=== PATIENT | male | born 1940 | race Caucasian/White ===

== ENCOUNTER 2020-02-05 10:08 | Emergency (ER) | payer MEDICARE, OTHER ==
[2020-02-05 10:14] VITALS: BP 158/70; PULSE 95
--- NOTE | 2020-02-05 10:24 | EDM.PDOC ---
ED HPI GENERAL MEDICAL PROBLEM - General Chief Complaint: Lower Extremity Injury/Pain Stated Complaint: LEFT LEG PAIN, NUMB Time Seen by Provider: 02/05/20 10:08 Source of Information: Reports: Patient, EMS, Old Records ([facility] chart/EMR). Denies: EMS Notes Reviewed (Not available at time of dictation) History Limitations: Reports: No Limitations - History of Present Illness INITIAL COMMENTS - FREE TEXT/NARRATIVE: The patient was brought to the emergency room via ambulance with research engineer accompaniment with no treatment in route. Patient apparently began having some nonspecific left foot and left leg numbness yesterday evening with progression this morning and patient waking up with moderate 8/10 left leg pain and paresthesias at about 5 AM this morning. He did take 500 mg of Tylenol at about 8:30 AM this morning with an additional OxyContin taken at about 9:30 AM with no improvement in his symptoms. He denies any recent fall, injury, etc., however note a recent CABG with venous bypass taken from the left leg. He denies any drainage, local signs of infection, etc. The patient denies any chest pain/pressure, heart flutter, dizziness, orthostasis, orthopnea, diaphoresis, recent decreased exercise tolerance, or any other anginal-type symptoms. No recent history of abdominal pain, heartburn, nausea, diarrhea, melena, gross hematochezia, or any food intolerance, including fatty foods, etc.. He denies any gross hematuria, colic, or other UTI symptoms. The patient also denies any recent fever, cough, wheezing, dyspnea, etc.. Onset: Gradual Onset Date: 02/04/20 Duration: Constant, Getting Worse Location: Reports: Lower Extremity, Left. Denies: Head, Face, Neck, Chest, Abdomen, Back, Pelvis, Upper Extremity, Left, Upper Extremity, Right, Lower Extremity, Right, Radiates to Quality: Reports: Stabbing, Throbbing Severity: Moderate Improves with: Reports: None Worsens with: Reports: None Context: Reports: Other (As above). Denies: Sick Contact, Trauma Associated Symptoms: Denies: Confusion, Chest Pain, Cough, Diaphoresis, Fever/Chills, Headaches, Loss of Appetite, Malaise, Nausea/Vomiting, Shortness of Breath, Weakness Treatments SHAKER REPAIRER: Reports: Acetaminophen, Other Medication(s) Left Leg Pain Score (Numeric/FACES): 8 - Related Data Allergies Allergy/AdvReac Type Severity Reaction Status Date / Time No Known Allergies Allergy Verified 01/31/17 16:01 Home Meds: Home Meds Cyanocobalamin (Vitamin B12) [Vitamin B12] 1,000 mcg PO DAILY 01/16/17 [History] Amiodarone [Cordarone] 200 mg PO DAILY 02/05/20 [History] Aspirin [Ecotrin EC] 81 mg PO DAILY@199902/05/20 [History] Clopidogrel [Plavix] 75 mg PO DAILY 02/05/20 [History] Furosemide 40 mg PO DAILY 02/05/20 [History] Metoprolol Succinate [Toprol XL 50mg] 50 mg PO DAILY 02/05/20 [History] Pantoprazole [ProTONIX] 40 mg PO DAILY@169902/05/20 [History] Potassium Chloride [Klor-Con M20] 40 meq PO DAILY 02/05/20 [History] atorvaSTATin [Lipitor] 80 mg PO DAILY@199902/05/20 [History] lisinopriL [Lisinopril] 10 mg PO DAILY 02/05/20 [History] metFORMIN [Glucophage XR] 500 mg PO BIDMEALS 02/05/20 [History] oxyCODONE 5 mg PO Q4H PRN 02/05/20 [History] Past Medical History HEENT History: Reports: Hard of Hearing, Other (See Below) Other HEENT History: Bilateral presbycusis with hearing aid therapy. Nasal polyposis. Cardiovascular History: Reports: Bypass, CAD, Heart Murmur, High Cholesterol, Hypertension, PA, PTCA, Stents, Other (See Below) Other Cardiovascular History: Cardiomegaly. History of PA in October 1997 just prior to initial PTCA/stent as above with no subsequent MIs. Respiratory History: Reports: COPD, Intubation, Previous, Other (See Below). Denies: Intubation, Difficult Other Respiratory History: COPD by chest x-ray with no current medical therapy. History of right rib fractures by x-ray. Gastrointestinal History: Reports: Colon Polyp, GERD, Other (See Below) Other Gastrointestinal History: History of benign hyperplastic colonic polyp of the transverse colon removed on 06/12/2007. Hyperbilirubinemia. Genitourinary History: Reports: BPH Musculoskeletal History: Reports: Arthritis, Back Pain, Chronic, Osteoarthritis, Other (See Below) Other Musculoskeletal History: Scoliosis. 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 Endocrine/Metabolic History: Reports: Diabetes, Type II. Denies: Diabetes, Type I, Hypothyroidism, IDDM Hematologic History: Reports: Anemia, B12 Deficiency - Past Surgical History HEENT Surgical History: Reports: Naso-Sinus Surgery, Other (See Below) Other HEENT Surgeries/Procedures: Septoplasty in 2010. Cardiovascular Surgical History: Reports: Coronary Artery Bypass, Coronary Artery Stent, Percutaneous Transluminal Angioplasty, Other (See Below) Other Cardiovascular Surgeries/Procedures: PTCA/stent in October 1997, December 2004, and 2009 with two-vessel CABG on 01/25/2020. GI Surgical History: Reports: Colonoscopy, Polypectomy, Other (See Below) Other GI Surgeries/Procedures: Initial colonoscopy on 06/12/2007 with polypectomy as above. Normal follow-up colonoscopy on 12/18/2012. Cholecystectomy in 2011. Treatment of abd abcess with strep. Neurological Surgical History: Reports: Discectomy, Lumbar Spine, Other (See Below) Other Neurological Surgeries/Procedures: Discectomy of the lumbar spine in 1983. Musculoskeletal Surgical History: Reports: Arthroscopic Knee, Shoulder Surgery Other Musculoskeletal Surgeries/Procedures:: Left rotator cuff repair. Bilateral knee arthroscopic evaluations. - Past Imaging History Past Imaging History: Reports: JOSÉ LUIS Screen (JOSÉ LUIS screening with exercise negative on 06/07/2009.), Angiography (Last in January 2020.), CAT Scan (CT of the head and maxillofacial region on 01/10/2017.), Stress Testing (Low level cardiac stress test on 06/28/2010 and 01/31/2005. Cardiolite stress test on 06/08/2010, 06/13/2007, and 08/05/2003), Ultrasound (Gallbladder ultrasound on 12/07/2011.) Social & Family History - Family History Oncologic: Reports: Prostate, Other (See Below) Other Oncologic Family History: Father with prostate cancer. Review of Systems - Review of Systems Review Of Systems: Comprehensive ROS is negative, except as noted in HPI. ED EXAM, GENERAL - Physical Exam Exam: See Below Exam Limited By: No Limitations General Appearance: Alert, WD/WN, No Apparent Distress Ears: Hearing Loss, Other (Moderate presbycusis with the patient not having his hearing aids today.) Head: Atraumatic, Normocephalic. No: Facial Swelling, Facial Tenderness, Sinus Tenderness Neck: Carotid Bruit (Mild bilateral carotid bruits). No: Supple, Non-Tender, Full Range of Motion, Lymphadenopathy (L), Lymphadenopathy (R), Thyromegaly Respiratory/Chest: No Respiratory Distress, Lungs Clear, Normal Breath Sounds, No Accessory Muscle Use, Chest Non-Tender, Other (Medial sternotomy is intact and healing well with no evidence of local signs of infection). No: Pleural Rub, Retractions Cardiovascular: Normal Peripheral Pulses, Regular Rate, Rhythm, No Edema, No Gallop, No JVD, No Murmur, No Rub. No: Gallop/S3, Gallop/S4, Friction Rub Peripheral Pulses: 2+: Radial (L), Radial (R), Dorsalis Pedis (L), Dorsalis Pedis (R) GI/Abdominal: Normal Bowel Sounds, Soft, Non-Tender, No Organomegaly, No Distention, No Abnormal Bruit, No Mass. No: Guarding (Male) Exam: Deferred Rectal (Males) Exam: Deferred Back Exam: Full Range of Motion, Other (Mild scoliosis). No: CVA Tenderness (L), CVA Tenderness (R), Muscle Spasm, Paraspinal Tenderness, Vertebral Tenderness Extremities: Normal Range of Motion, No Pedal Edema, Normal Capillary Refill, Leg Pain (Mild palpation pain over the venous graft site at the left medial knee region with minimal localized swelling not involving the knee joint with no wound dehiscence, local signs of infection, etc.). No: Betty's Sign, Increased Warmth, Redness Neurological: Alert, Oriented, CN II-XII Intact, Normal Cognition, Normal Gait, Normal Reflexes (Negative Babinski's), No Motor/Sensory Deficits Psychiatric: Normal Affect, Normal Mood Skin Exam: Wound/Incision (Venous graft site and medial sternotomy as above). No: Diaphoretic, Ecchymosis, Erythema, Increased Warmth, Lymphangitis Lymphatic: No Adenopathy Course - Vital Signs Last Recorded V/S: Last Vital Signs Temp 35.8 C L 02/05/20 10:09 Pulse 95 02/05/20 10:09 Resp 20 02/05/20 10:09 BP 158/70 H 02/05/20 10:09 Pulse Ox 99 02/05/20 10:09 Vital Signs - 24 hr 02/05/20 10:09 Temperature [ 35.8 C L Temporal] Pulse, 95 Peripheral [ Left Pulse Oximetry] Respiratory 20 Rate Blood Pressure 158/70 H [Left Upper Arm ] O2 Sat by Pulse 99 Oximetry - Orders/Labs/Meds Orders: Active Orders 24 hr Category Date Time Status Obtain Past Medical Record [OM.PC] Routine Oth 02/05/20 10:24 Active Labs: Laboratory Tests 02/05/20 02/05/20 02/05/20 Range/Units 10:35 10:35 10:35 WBC 10.1 (4.0-10.2) K/uL RBC 3.12 L (4.33-5.41) M/uL Hgb 9.5 L D (13.1-16.8) g/dL Hct 30.3 L (39.0-49.0) % MCV 97.1 (84.0-98.0) fL MCH 30.4 (28.2-33.3) pg MCHC 31.4 L (31.7-36.0) g/dL RDW 14.2 H (11.2-14.1) % Plt Count 549 H D (150-350) K/uL Neut % (Auto) 79.0 (45.0-80.0) % Lymph % (Auto) 9.6 L (10.0-50.0) % Branch % (Auto) 6.6 (2.0-14.0) % Eos % (Auto) 4.6 (0.0-5.0) % Baso % (Auto) 0.2 (0.0-2.0) % Neut # (Auto) 8.00 H (1.40-7.00) K/uL Lymph # (Auto) 0.97 (0.50-3.50) K/uL Branch # (Auto) 0.67 (0.00-1.00) K/uL Eos # (Auto) 0.47 (0.00-0.50) K/uL Baso # (Auto) 0.02 (0.00-0.20) K/uL PT 9.8 (9.5-12.0) SEC INR 1.0 APTT 25.2 (24.5-32.8) SEC D-Dimer, Quantitative (0-400) ng/mL Sodium 139 (136-145) mmol/L Potassium 4.7 (3.5-5.1) mmol/L Chloride 104 (98-107) mmol/L Carbon Dioxide 24.0 (21.0-32.0) mmol/L BUN 31 H (7-18) mg/dL Creatinine 1.21 H (0.51-1.17) mg/dL Est Cr Clr Drug Dosing 54.45 mL/min Estimated GFR (MDRD) 58 mL/min Glucose 153 H (74-106) mg/dL Calcium 8.9 (8.5-10.1) mg/dL Total Bilirubin 0.4 (0.2-1.0) mg/dL AST 20 (15-37) U/L ALT 32 (12-78) U/L Alkaline Phosphatase 114 (46-116) IU/L Total Protein 6.9 (6.4-8.2) g/dL Albumin 2.6 L (3.4-5.0) g/dL 02/05/20 Range/Units 10:35 WBC (4.0-10.2) K/uL RBC (4.33-5.41) M/uL Hgb (13.1-16.8) g/dL Hct (39.0-49.0) % MCV (84.0-98.0) fL MCH (28.2-33.3) pg MCHC (31.7-36.0) g/dL RDW (11.2-14.1) % Plt Count (150-350) K/uL Neut % (Auto) (45.0-80.0) % Lymph % (Auto) (10.0-50.0) % Branch % (Auto) (2.0-14.0) % Eos % (Auto) (0.0-5.0) % Baso % (Auto) (0.0-2.0) % Neut # (Auto) (1.40-7.00) K/uL Lymph # (Auto) (0.50-3.50) K/uL Branch # (Auto) (0.00-1.00) K/uL Eos # (Auto) (0.00-0.50) K/uL Baso # (Auto) (0.00-0.20) K/uL PT (9.5-12.0) SEC INR APTT (24.5-32.8) SEC D-Dimer, Quantitative 4070 H (0-400) ng/mL Sodium (136-145) mmol/L Potassium (3.5-5.1) mmol/L Chloride (98-107) mmol/L Carbon Dioxide (21.0-32.0) mmol/L BUN (7-18) mg/dL Creatinine (0.51-1.17) mg/dL Est Cr Clr Drug Dosing mL/min Estimated GFR (MDRD) mL/min Glucose (74-106) mg/dL Calcium (8.5-10.1) mg/dL Total Bilirubin (0.2-1.0) mg/dL AST (15-37) U/L ALT (12-78) U/L Alkaline Phosphatase (46-116) IU/L Total Protein (6.4-8.2) g/dL Albumin (3.4-5.0) g/dL Meds: None - Radiology Interpretation Free Text/Narrative:: None Departure - Departure Time of Disposition: 12:38 Disposition: DC/Tfer to Acute Hospital 02 Condition: Good Clinical Impression: D-dimer, elevated, Left leg pain, Postoperative anemia, Peptic reflux disease, Hypertension, Hypoalbuminemia, Renal insufficiency Coronary artery disease Qualifiers: Coronary Disease-Associated Artery/Lesion type: bypass graft [place] vs. transplanted heart: [place] heart Associated angina: without angina Qualified Code(s): I25.810 - Atherosclerosis of coronary artery bypass graft(s) without angina pectoris COPD (chronic obstructive pulmonary disease) Qualifiers: COPD type: emphysema Emphysema type: panlobular Qualified Code(s): J43.1 - Panlobular emphysema Osteoarthritis Qualifiers: Osteoarthritis location: multiple joints Osteoarthritis type: primary Qualified Code(s): M89.49 - Other hypertrophic osteoarthropathy, multiple sites Diabetes mellitus Qualifiers: Diabetes mellitus type: type 2 Diabetes mellitus shelter insulin use: without commutator presser use Diabetes mellitus complication status: with kidney complications Diabetes mellitus complication detail: with chronic kidney disease Chronic kidney disease stage: stage 2 (mild) Qualified Code(s): E11.22 - Type 2 diabetes mellitus with diabetic chronic kidney disease Hyperlipidemia Qualifiers: Hyperlipidemia type: unspecified Qualified Code(s): E78.5 - Hyperlipidemia, unspecified - Discharge Information *PRESCRIPTION DRUG MONITORING PROGRAM REVIEWED*: Not Applicable *COPY OF PRESCRIPTION DRUG MONITORING REPORT IN PATIENT JARRETT: Not Applicable Referrals: PCP,None [Primary Care Provider] - Forms: ED Department Discharge, Interfacility Transfer [facility] Additional Instructions: 1. Have your drive you to the emergency room at [facility] for evaluation, including probable venous Doppler studies of your left leg, etc. 2. STRICT nothing to eat or drink until otherwise directed by [facility] providers 3. Immediately after this visit verify that your cellular telephone's voicemail has been activated and is empty. Also verify that your home telephone's answering machine is operating properly and has space to receive messages. Note that it is sometimes necessary for us to be able to contact you at a later date to discuss your medical care. 4. Please remember that we are ALWAYS here for you and want to answer any quest ions you may have. Feel free to call the hospital any time and we call you back [facility]. Sepsis Event Note (ED) - Evaluation Sepsis Screening Result: No Definite Risk - Focused Exam Vital Signs: Vital Signs Temp Pulse Resp BP Pulse Ox 02/05/20 10:09 35.8 C L 95 20 158/70 H 99 - Problem List & Annotations (1) D-dimer, elevated SNOMED Code(s): 524373392 Code(s): R79.89 - OTHER SPECIFIED ABNORMAL FINDINGS OF BLOOD CHEMISTRY Status: Acute Priority: High Current Visit: Yes Onset Date: 02/05/20 Annotation/Comment:: D-dimer elevation with no clinical evidence of DVT or PE. Telephone consultation at 11:[address] Salazar, emergency room physician at [facility], who did accept the patient for further evaluation. The patient and his are requesting that the he be evaluated at [facility], since his heart surgery was conducted in that facility. Subsequent telephone consultation at 12:[address] Walls, emergency room physician at [facility], who does agree to evaluate the patient, including probable venous Doppler studies, etc.. No further treatment recommendations were given. He is aware of private automobile transfer with his . Physical exam and vital signs were stable at time of patient transfer. (2) Left leg pain SNOMED Code(s): 193120295 Code(s): M79.605 - PAIN IN LEFT LEG Status: Acute Priority: High Current Visit: Yes Onset Date: 02/04/20 Annotation/Comment:: Left leg pain either secondary to postoperative venous graft and/or possible DVT. No local signs of infection. Emergency room evaluation in [facility] as above. Note that symptoms improved with pain of 2/10 at time of discharge after previous Tylenol and OxyContin prior to arrival. (3) Coronary artery disease SNOMED Code(s): 10667976 Code(s): I25.10 - ATHSCL HEART DISEASE OF [place] CORONARY ARTERY W/O ANG PCTRS Status: Chronic Priority: Medium Current Visit: Yes Annotation/Comment:: No recent chest pain or anginal type symptoms. Note status post two-vessel CABG on 01/25/2020 with previous PTCA/stent x3 as above. Qualifiers: Coronary Disease-Associated Artery/Lesion type: bypass graft [place] vs. transplanted heart: [place] heart Associated angina: without angina Qualified Code(s): I25.810 - Atherosclerosis of coronary artery bypass graft(s) without angina pectoris (4) Postoperative anemia SNOMED Code(s): 414477629, 749600534 Code(s): D64.9 - ANEMIA, UNSPECIFIED Status: Acute Priority: Medium Current Visit: Yes Onset Date: 02/05/20 Annotation/Comment:: Observe for now. Close follow-up by regular providers. (5) COPD (chronic obstructive pulmonary disease) SNOMED Code(s): 99556069 Code(s): J44.9 - CHRONIC OBSTRUCTIVE PULMONARY DISEASE, UNSPECIFIED Status: Chronic Priority: Medium Current Visit: Yes Annotation/Comment:: COPD by chest x-ray. No current medical therapy required. No recent fever, bronchitic type symptoms, etc. Qualifiers: COPD type: emphysema Emphysema type: panlobular Qualified Code(s): J43.1 - Panlobular emphysema (6) Osteoarthritis SNOMED Code(s): 221360641 Code(s): M19.90 - UNSPECIFIED OSTEOARTHRITIS, UNSPECIFIED SITE Status: Chronic Priority: Medium Current Visit: Yes Annotation/Comment:: Stable by history Qualifiers: Osteoarthritis location: multiple joints Osteoarthritis type: primary Qualified Code(s): M89.49 - Other hypertrophic osteoarthropathy, multiple sites (7) Diabetes mellitus SNOMED Code(s): 47944137 Code(s): E11.9 - TYPE 2 DIABETES MELLITUS WITHOUT COMPLICATIONS Status: Chronic Priority: Medium Current Visit: Yes Annotation/Comment:: Stable by history. Random blood sugar of 153 today. Qualifiers: Diabetes mellitus type: type 2 Diabetes mellitus commutator presser insulin use: without shelter use Diabetes mellitus complication status: with kidney complications Diabetes mellitus complication detail: with chronic kidney disease Chronic kidney disease stage: stage 2 (mild) Qualified Code(s): E11.22 - Type 2 diabetes mellitus with diabetic chronic kidney disease; N18.2 - Chronic kidney disease, stage 2 (mild) (8) Hyperlipidemia SNOMED Code(s): 12919251 Code(s): E78.5 - HYPERLIPIDEMIA, UNSPECIFIED Status: Chronic Priority: Medium Current Visit: Yes Annotation/Comment:: Continue current medical therapy Qualifiers: Hyperlipidemia type: unspecified Qualified Code(s): E78.5 - Hyperlipidemia, unspecified (9) Peptic reflux disease SNOMED Code(s): 058653307 Code(s): K21.9 - GASTRO-ESOPHAGEAL REFLUX DISEASE WITHOUT ESOPHAGITIS Status: Chronic Priority: Medium Current Visit: Yes Annotation/Comment:: Stable by history (10) Hypertension SNOMED Code(s): 84251074 Code(s): I10 - ESSENTIAL (PRIMARY) HYPERTENSION Status: Chronic Priority: Medium Current Visit: Yes Annotation/Comment:: Mildly elevated in the emergency room. Observe for now. Qualifiers: Hypertension type: essential hypertension Qualified Code(s): I10 - Essential (primary) hypertension (11) Hypoalbuminemia SNOMED Code(s): 508024473 Code(s): E88.09 - OTH DISORDERS OF PLASMA-PROTEIN METABOLISM, NEC Status: Acute Priority: Medium Current Visit: Yes Onset Date: 02/05/20 Annotation/Comment:: Observe for now (12) Renal insufficiency SNOMED Code(s): 863931762, 139264603 Code(s): N28.9 - DISORDER OF KIDNEY AND URETER, UNSPECIFIED Status: Acute Priority: Medium Current Visit: Yes Onset Date: 02/05/20 Annotation/Comment:: Possible beginning diabetic nephropathy. Observe closely by regular providers. - Problem List Review Problem List Initiated/Reviewed/Updated: Yes - My Orders Last 24 Hours: My Active Orders 02/05/20 10:24 Obtain Past Medical Record [.] Routine - Assessment/Plan Last 24 Hours: My Active Orders 02/05/20 10:24 Obtain Past Medical Record [OM.PC] Routine Assessment:: As above Plan: As above. Extensive precautions were given to the patient and his , who are in agreement with the treatment plan. See Patient Instructions for further treatment and plan.
[2020-02-05 11:22] LABS: PTT,PARTIAL THROMBOPLSTIN TIME 25.2 SEC (24.5-32.8)
== END 2020-02-05 12:45 ==
LOC: LL.ED 10:08
DX: K21.9 Gastro-esophageal reflux disease without esophagitis (principal); E88.09 Other disorders of plasma-protein metabolism, not elsewhere classified; M79.605 Pain in left leg; I25.810 Atherosclerosis of coronary artery bypass graft(s) without angina pectoris; J43.1 Panlobular emphysema; M89.49 Other hypertrophic osteoarthropathy, multiple sites; R79.1 Abnormal coagulation profile; I12.9 Hypertensive chronic kidney disease with stage 1 through stage 4 chronic kidney disease, or unspecified chronic kidney disease; E11.22 Type 2 diabetes mellitus with diabetic chronic kidney disease; N18.2 Chronic kidney disease, stage 2 (mild); D63.1 Anemia in chronic kidney disease; E78.5 Hyperlipidemia, unspecified; I25.2 Old myocardial infarction; Z95.5 Presence of coronary angioplasty implant and graft; Z79.82 Long term (current) use of aspirin; Z79.84 Long term (current) use of oral hypoglycemic drugs; Z79.899 Other long term (current) drug therapy
CPT/HCPCS: 36415; 80053; 85025; 85379; 85610; 85730; 99284